=== PATIENT | female | born 1970 ===

== ENCOUNTER 2017-06-25 15:13 | Inpatient (IN) | payer OTHER ==
[~2017-06-25] VITALS: Ht 165.1 cm; Wt 68.0 kg
[2017-06-26] MEDS ORDERED: ZANTAC150 MG PO (12:47)
[2017-06-26] MEDS ORDERED: SINGULAIR10 MG PO (12:47)
[2017-06-26] MEDS ORDERED: BEVESPI AEROS10.7 GM IH (12:48)
== END 2017-07-01 21:35 | disposition home or self-care (01) | DRG 941 ==
LOC: O/R 06-30 05:50 → SURG 06-30 07:00 → SURH 06-30 13:40
PROVIDERS: Plastic Surgery; Surgery
PROC: 0HPT0JZ Removal of Synthetic Substitute from Right Breast, Open Approach (ICD-10-PCS; 2017-06-30)
PROC: 0HNV0ZZ Release Bilateral Breast, Open Approach (ICD-10-PCS; 2017-06-30)
PROC: 0HRV0JZ Replacement of Bilateral Breast with Synthetic Substitute, Open Approach (ICD-10-PCS; principal; 2017-06-30 07:00)
PROC: 0HPU0JZ Removal of Synthetic Substitute from Left Breast, Open Approach (ICD-10-PCS; 2017-06-30 07:00)
DX: Z15.01 Genetic susceptibility to malignant neoplasm of breast (principal); Z90.13 Acquired absence of bilateral breasts and nipples

== ENCOUNTER 2017-07-28 12:34 | Outpatient (CLI) | payer OTHER ==
[~2017-07-28 12:34] MED LIST: BEVESPI AEROS10.7 GM IH; SINGULAIR10 MG PO; ZANTAC150 MG PO
== END 2017-07-28 12:46 | disposition home or self-care (01) ==
LOC: SONOGRAMA 12:34
DX: C50.911 Malignant neoplasm of unspecified site of right female breast (principal)